=== PATIENT | female | born 1950 | race Asian ===

== ENCOUNTER 2019-03-27 17:49 | Emergency (ER) | payer MEDICARE, OTHER ==
[~2019-03-27] VITALS: Ht 165.1 cm; Wt 59.0 kg
[2019-03-27 17:59] VITALS: BP 157/83
--- NOTE | 2019-03-27 18:14 | NUR ---
"SMASHED FINGER ON LEFT HAND WITH A ROCK" HAPPENED ABOUT 20 MIN AGO PER TRIAGE NOTE
--- NOTE | 2019-03-27 19:17 | NUR ---
ALUMIFOAM FINGERSPLINT APPLIED
== END 2019-03-27 19:25 | disposition home or self-care (01) ==
LOC: ED 18:34
DX: S67.195A Crushing injury of left ring finger, initial encounter (principal); X58.XXXA Exposure to other specified factors, initial encounter; Y93.89 Activity, other specified; Y92.410 Unspecified street and highway as the place of occurrence of the external cause; Y99.8 Other external cause status
CPT/HCPCS: 29130; 99283